=== PATIENT | female | born 1995 | race Caucasian/White ===

== ENCOUNTER 2017-02-24 16:09 | Emergency (ER) | payer MEDICAID ==
[~2017-02-24] VITALS: Ht 167.6 cm; Wt 97.7 kg
[2017-02-24 18:41] VITALS: BP 140/87
== END 2017-02-24 18:41 | disposition home or self-care (01) ==
LOC: ED 16:09
DX: L73.9 Follicular disorder, unspecified (principal); Z79.3 Long term (current) use of hormonal contraceptives; Z88.6 Allergy status to analgesic agent

== ENCOUNTER 2019-10-08 16:53 | Emergency (ER) | payer SELFPAY ==
[~2019-10-08] VITALS: Ht 162.6 cm; Wt 108.9 kg
[2019-10-08 17:16] VITALS: Ht 162.6 cm; Wt 108.9 kg
[2019-10-08 19:02] VITALS: BP 119/68
== END 2019-10-08 19:02 | disposition home or self-care (01) ==
LOC: ED 16:53
DX: J01.90 Acute sinusitis, unspecified (principal); R51 Headache
CPT/HCPCS: J1885